=== PATIENT | male | born 1970 | race Caucasian/White ===

== ENCOUNTER 2022-10-16 01:20 | Emergency (ER) | payer SELFPAY ==
[~2022-10-16] VITALS: Ht 188 cm; Wt 68.2 kg
[2022-10-16 10:00] VITALS: BP 118/80
== END 2022-10-16 11:01 | disposition home or self-care (01) ==
LOC: ER 01:20
DX: S00.33XA Contusion of nose, initial encounter (principal); W18.09XA Striking against other object with subsequent fall, initial encounter; Y93.89 Activity, other specified; Y92.89 Other specified places as the place of occurrence of the external cause; Y99.8 Other external cause status
CPT/HCPCS: 36415; 70450; 70486; 72125; 80320